=== PATIENT | female | born 1965 | race Native Hawaiian/Other Pacific Islander ===

== ENCOUNTER → 2017-08-24 | Outpatient (CLI) | payer OTHER ==
--- NOTE | 2017-08-24 08:43 | CT ---
EXAMINATION TYPE: CT chest w con DATE OF EXAM: 08/24/2017 COMPARISON: NONE HISTORY: Upper chest pain for [address] DLP: 661.1 mGycm. Automated Exposure Control for Dose Reduction was Utilized. TECHNIQUE: CT scan of the thorax is performed following with IV Contrast, patient injected with 100 mL of Isovue 300. FINDINGS: LUNGS: Minimal bibasilar subsegmental atelectasis is noted. The lungs are grossly clear, there is no concerning parenchymal mass or nodule identified. There is no pleural effusion or pneumothorax seen . The tracheobronchial tree is patent. MEDIASTINUM: Hazy density is seen within the upper anterior mediastinum, likely residual thymic tissu e as it is not well-circumscribed and contains no irregular calcifications. There are no greater than 1 cm hilar or mediastinal lymph nodes. No pericardial effusion is seen. The ascending thoracic ao rta and pulmonary artery are within normal limits. No significant coronary artery calcifications are seen. OTHER: Just medial and inferior to the left implant within the lower inner quadrant of the left breas t there is an asymmetric small mass measuring 8 x 4 mm. This could represent a lymph node or vascular ectasia, however sonography is recommended for confirmation. This is marked on series 3 image 42. The liver is diffusely hypoattenuated in comparison to that of the spleen with area of probable focal fatty sparing in the gallbladder fossa and segment IVb of the liver. This limits evaluation for unde rlying hepatic masses although no focal masses appreciated. No intrahepatic biliary ductal dilatation is seen. IMPRESSION: 1. No CT findings to account for the patient's chest pain. 2. Small mass in the lower inner quadrant of the left breast just medial to the left breast implants for which targeted ultrasound is recommended for further characterization. This could represent a sma ll lymph node or vascular ectasia rather than a true mass. 3. Hepatic steatosis, appearing moderate in degree.
== END ==
LOC: RADCTMAIN 07:55
PROVIDERS: ATTEND Family Medicine
DX: N63.24 Unspecified lump in the left breast, lower inner quadrant (principal)
CPT/HCPCS: 71260; Q9967

== ENCOUNTER → 2017-08-29 | Outpatient (CLI) | payer OTHER ==
--- NOTE | 2017-08-29 09:36 | USB ---
Reason for exam: clinical finding. History: Saline implants in both breasts, 2012. Indicated problem(s): lump or thickening in the left breast. Physical Findings: Nurse did not find any significant physical abnormalities on exam. US Breast LT Left breast ultrasound includes all four quadrants, the retroareolar region and axilla. Finding demonstrates a 0.5 x 0.5 x 0.3cm oval, mixed lesion at 2 o'clock, a 0.2 x 0.2 x 0.2cm lesion too small to characterize at 3 o'clock, a 0.4 x 0.5 x 0.2cm oval, mixed lesion at 5 o'clock and a 0.5 x 0.2 x 0.1cm oval, cystic lesion at 8 o'clock. These results were verbally communicated with the patient and result sheet given to the patient on 08/29/17. ASSESSMENT: Probably benign, BI-RAD 3 RECOMMENDATION: Ultrasound of the left breast in 6 months.
== END | disposition home or self-care (01) ==
LOC: RADUSWWP 08:23
PROVIDERS: ATTEND Family Medicine
DX: N63.24 Unspecified lump in the left breast, lower inner quadrant (principal)